=== PATIENT | male | born 1990 | race African-American/Black ===

== ENCOUNTER 2017-10-04 11:03 | Inpatient (IN) | payer OTHER ==
[2017-10-04 11:48] VITALS: BMI 22.2
--- NOTE | 2017-10-04 20:06 | HP ---
Admission [facility] Chief Complaint: SEEKING REHAB SERVICES Allergies/Adverse Reactions: Allergies Allergy/AdvReac Type Severity Reaction Status Date / Time egg Allergy Intermediate Difficulty Verified 10/04/17 12:02 Breathing Egg Derived Allergy Intermediate Difficulty Verified 10/04/17 12:02 Breathing No Known Drug Allergies Allergy Unknown Verified 10/04/17 12:03 History of Present Illness: 27 Y.O. MAN WITH AN EXTENSIVE HISTORY OF MARIJUANA DEPENDENCE IS HERE SEEKING HIS FIRST REHAB ADMISSION. HE REPORTS HE IS MANDATED TO COMPLETE REHAB BY [facility]. DOES NOT HAVE A SIGNIFICANT PERIOD CLEAN. Exam Limitations: No Limitations - Ebola screening Have you traveled outside of the country in the last 21 days: No Have you been sick,other than usual withdrawal symptoms: No - Review of Systems Constitutional: Night Sweats EENT: reports: Blurred Vision Respiratory: reports: No Symptoms reported Cardiac: reports: No Symptoms Reported GI: reports: No Symptoms Reported : reports: No Symptoms Reported Musculoskeletal: reports: Back Pain Integumentary: reports: No Symptoms Reported Neuro: reports: No Symptoms reported Endocrine: reports: No Symptoms Reported Hematology: reports: Anemia Psychiatric: reports: Judgement Intact, Mood/Affect Appropiate, Orientated x3, Depressed, other Other Systems: Reviewed and Negative (BIPOLAR) Patient History - Patient Medical History Hx Anemia: Yes (H/X ADELFO ) Hx Asthma: No Hx Chronic Obstructive Pulmonary Disease (COPD): No Hx Cancer: No Hx Cardiac Disorders: No Hx Congestive Heart Failure: No Hx Hypertension: No Hx Hypercholesterolemia: No Hx Pacemaker: No HX Cerebrovascular Accident: No Hx Seizures: No Hx Dementia: No Hx Diabetes: No Hx Gastrointestinal Disorders: No Hx Liver Disease: No Hx Genitourinary Disorders: No Hx Sexually Transmitted Disorders: No Hx Renal Disease (ESRD): No Hx Thyroid Disease: No Hx Human Immunodeficiency Virus (HIV): No Hx Hepatitis C: No Hx Depression: Yes Hx Suicide Attempt: No Hx Bipolar Disorder: Yes Hx Schizophrenia: No - Patient Surgical History Past Surgical History: No - PPD History Previous Implant?: Yes Documented Results: Negative w/o proof PPD to be Administered?: Yes - Reproductive History Patient is a Female of Child Bearing Age (11 -55 yrs old): No - Smoking Cessation Smoking history: Current every day smoker Have you smoked in the past 12 months: Yes Aproximately how many cigarettes per day: 10 Initiated information on smoking cessation: Yes 'Breaking Loose' booklet given: 10/04/17 - Substance & Tx. History Hx Alcohol Use: No Hx Substance Use: Yes Substance Use Type: Marijuana Hx Substance Use Treatment: No - Substances Abused Marijuana/Hashish Route: Smoking Frequency: 3-6 times per week Amount used: 1.5 OZ Age of first use: 11 Date of Last Use: 09/26/17 Family Disease History - Family Disease History Family Disease History: Diabetes: Grandparent, Respiratory: Brother, Sister Admission Physical Exam [facility] - Vital Signs Vital Signs: Vital Signs - 24 hr 10/04/17 11:46 Temperature 97.7 F Pulse Rate 83 Respiratory 18 Rate Blood Pressure 100/60 - Physical General Appearance: Yes: No Apparent Distress, Nourished, Appropriately Dressed HEENTM: Yes: Hearing grossly Normal Respiratory: Yes: Chest Non-Tender, Lungs Clear, Normal Breath Sounds, No Respiratory Distress, No Accessory Muscle Use Neck: Yes: No masses,lesions,Nodules, Trachea in good position Breast: Yes: Breast Exam Deferred Cardiology: Yes: Regular Rhythm, Regular Rate Abdominal: Yes: Normal Bowel Sounds, Non Tender Genitourinary: Yes: Other (NO COMPLAINTS REPORTED) Back: Yes: Normal Inspection Musculoskeletal: Yes: Back pain Extremities: Yes: Normal Inspection, Normal Range of Motion Neurological: Yes: Alert, Motor Strength 5/5, Normal Mood/Affect, Normal Response Integumentary: Yes: Normal Color, Dry, Warm Lymphatic: Yes: Within Normal Limits - Diagnostic (1) Marijuana dependence Current Visit: Yes Status: Chronic (2) Nicotine dependence Current Visit: Yes Status: Chronic (3) History of iron deficiency anemia Current Visit: Yes Status: Suspected Cleared for Admission [facility] - Detox or Rehab [facility] Level of Care: Observation Bed Claeared for Rehab Admission: Yes [facility] Breath Alcohol Content Breath Alcohol Content: 0 Urine Drug Screen - Results Drug Screen Negative: No Urine Drug Screen Results: THC-Marijuana Inpatient Rehab Admission - Initial Determination Are CD services needed?: Yes Free of communicable disease: Yes Not in need of hospitalization: Yes - Rehab Admission Criteria Previous failed treatment: Yes Poor recovery environment: No Comorbidities: No Lacks judgement: No Patient is meeting Inpatient Rehab admission criteria:: Yes
[2017-10-04] MEDS ORDERED: MAG HYDROX/AL HYDROX/SIMETH 30 ML UNIT-DOSE CUP PO PRN (20:14)
[2017-10-04] MEDS ORDERED: hydrOXYzine PAMOATE 50 MG CAPSULE (FP) PO PRN (20:14)
[2017-10-04] MEDS ORDERED: MAGNESIUM CITRATE 300 ML BOTTLE PO PRN (20:14)
[2017-10-04] MEDS ORDERED: P-EPHED 60MG/TRIPROLIDI 2.5MG TABLET PO PRN (20:14)
[2017-10-04] MEDS ORDERED: IBUPROFEN 400 MG TABLET (FP) PO PRN (20:14)
[2017-10-04] MEDS ORDERED: MENTHOL/PHENOL 1 EACH UD MM PRN (20:14)
[2017-10-04] MEDS ORDERED: guaiFENesin/D-METHORPHAN HB 10 ML UNIT-DOSE CUPS PO PRN (20:14)
[2017-10-04] MEDS ORDERED: ACETAMINOPHEN 325 MG TABLET (FP) PO PRN (20:14)
[2017-10-04] MEDS ORDERED: LOPERAMIDE HCL 2 MG CAPSULE PO PRN (20:14)
[2017-10-04] MEDS ORDERED: MAGNESIUM HYDROX 2400MG/30ML ORAL SUSPENSION 30 ML CUP PO PRN (20:14)
[2017-10-04] MEDS ORDERED: COLLOIDAL OATMEAL 1 BAR EACH TP PRN (20:15)
[2017-10-04] MEDS ORDERED: AMMONIUM LACTATE 12% LOTION 225 GM BOTTLE TP PRN (20:17)
[2017-10-04] MEDS ORDERED: TUBERCULIN PPD 5 TU/0.1ML VIAL ID ONE (21:46)
[2017-10-04] MEDS: THIAMINE HCL 100 MG TABLET (FP) PO SCH (21:47)
[2017-10-04 22:54] LABS: URINE APPEARANCE CLEAR; URINE BILIRUBIN NEGATIVE (NEGATIVE); URINE BLOOD NEGATIVE (NEGATIVE); URINE COLOR AMBER; URINE GLUCOSE (UA) NEGATIVE (NEGATIVE); URINE KETONE NEGATIVE (NEGATIVE); URINE LEUK ESTERASE NEGATIVE (NEGATIVE); URINE NITRITE NEGATIVE (NEGATIVE)
[2017-10-04 23:25] LABS: URINE PROTEIN 1+ (NEGATIVE)
[2017-10-04 23:28] LABS: EPI CELLS RARE /HPF (FEW); URINE HYALINE CAST 3 /lpf; URINE MUCUS MANY
--- NOTE | 2017-10-04 23:44 | PN ---
[facility] Progress Note Note: Psychiatric nurse practitioner note: Pre Sales Technical Consultant contacted by RN requesting patient's Seroquel medications. As per pharmacy claims patient received a prescription of seroquel 100mg BID on . Seroquel 100mg BID ordered. Verbal consent given. Will continue to monitor patient.
[2017-10-04] MEDS: QUEtiapine FUMARATE 100 MG TABLET (FP) PO SCH (23:54)
[2017-10-05 10:00] LABS: HEMATOCRIT 41.7 % (35.4-49); HEMOGLOBIN 13.6 GM/dL (11.7-16.9); MCH 28.6 pg (25.7-33.7); MCHC 32.6 g/dl (32.0-35.9); MEAN CELL VOLUME 87.8 fl (80-96); MEAN PLT VOLUME 8.6 fl (7.5-11.1); PLATELET COUNT 325 K/MM3 (134-434); RBC 4.75 M/mm3 (4.00-5.60); RDW 14.7 % (11.9-15.9)
[2017-10-05 10:03] LABS: ALBUMIN 3.1 g/dl (3.4-5.0); ALK PHOS 48 U/L (45-117); ANION GAP 5 (8-16); BILIRUBIN,TOTAL 0.6 mg/dL (0.2-1.0); BLOOD UREA NITROGEN 9 mg/dL (7-18); CALCIUM 7.9 mg/dL (8.5-10.1); CHLORIDE 107 mmol/L (98-107); CO2 31 mmol/L (21-32); CREATININE 1.2 mg/dL (0.7-1.3); GLUCOSE,RANDOM 143 mg/dL (74-106); POTASSIUM 3.7 mmol/L (3.5-5.1); SGOT/AST 23 U/L (15-37); SGPT/ALT 23 U/L (12-78); SODIUM 143 mmol/L (136-145); TOT PROT 5.8 g/dl (6.4-8.2)
[2017-10-05] MEDS: QUEtiapine FUMARATE 100 MG TABLET (FP) PO SCH ×2 (10:55→21:04)
[2017-10-05] MEDS: NICOTINE 14 MG/24 HOURS TOPICAL PATCH TD SCH (10:55)
[2017-10-05] MEDS: PRENATAL VITAMINS W/ FOLIC ACID TABLET (FP) PO SCH (10:55)
[2017-10-05] MEDS: THIAMINE HCL 100 MG TABLET (FP) PO SCH (21:04)
[2017-10-06] MEDS: PRENATAL VITAMINS W/ FOLIC ACID TABLET (FP) PO SCH (09:56)
[2017-10-06] MEDS: QUEtiapine FUMARATE 100 MG TABLET (FP) PO SCH ×2 (09:57→21:08)
[2017-10-06] MEDS: NICOTINE POLACRILEX 2 MG GUM BUC PRN ×3 (09:57→17:43)
[2017-10-06] MEDS: NICOTINE 14 MG/24 HOURS TOPICAL PATCH TD SCH (09:58)
[2017-10-06] MEDS: THIAMINE HCL 100 MG TABLET (FP) PO SCH (21:08)
[2017-10-07] MEDS: PRENATAL VITAMINS W/ FOLIC ACID TABLET (FP) PO SCH (10:37)
[2017-10-07] MEDS: QUEtiapine FUMARATE 100 MG TABLET (FP) PO SCH ×2 (10:37→21:07)
[2017-10-07] MEDS: NICOTINE POLACRILEX 2 MG GUM BUC PRN ×3 (10:38→21:08)
[2017-10-07] MEDS: NICOTINE 14 MG/24 HOURS TOPICAL PATCH TD SCH (10:38)
--- NOTE | 2017-10-07 14:49 | HP ---
Psychiatrist Admission - Data Date of interview: 10/07/17 Admission source: [facility] Identifying data: [facility] 27 year old AA male unemployed and residing with his brother in [place]. Medical History: anemia, smokes 2 cigarettes a day Psychiatric History: Patient reports first psychiatric contact at age of 10, diagnosed as ADHD and later his diagnosis chaged to Bipolar disorder reports several psychiatric hospitalizations mostly to [facility] with most recent "long time ago", under the care of [facility] outpatient clinic, he reports has been on different psychotropics since age 10, (Risperdal,Ritalin, Depakote Vistaril, Prozac, Zyprexa, Remeron) currenly on Seroquel 200 mg po hs. Physical/Sexual Abuse/Trauma History: Denies history of abuse. Additional Comment: longest period of abstinence 6 months Vital Signs: Vital Signs - 24 hr 10/07/17 10/07/17 10/07/17 00:30 03:30 06:50 Temperature 98.3 F Pulse Rate 65 Respiratory 16 16 16 Rate Blood Pressure 93/51 Allergies/Adverse Reactions: Allergies Allergy/AdvReac Type Severity Reaction Status Date / Time egg Allergy Intermediate Difficulty Verified 10/04/17 12:02 Breathing Egg Derived Allergy Intermediate Difficulty Verified 10/04/17 12:02 Breathing No Known Drug Allergies Allergy Unknown Verified 10/04/17 12:03 Date of last physical exam: 10/04/17 Concur with the findings of this exam: Yes - Substance Abuse/Tx History Hx Alcohol Use: No Hx Substance Use: Yes Substance Use Type: Marijuana (age at first use 10, 2-3 timew a week) Hx Substance Use Treatment: Yes Mental Status Exam - Mental Status Exam Alert and Oriented to: Time, Place, Person Cognitive Function: Good Patient Appearance: Well Groomed Mood: Sad Affect: Appropriate Patient Behavior: Appropriate, Cooperative Speech Pattern: Clear, Appropriate Voice Loudness: Normal Thought Process: Intact, Goal Oriented Thought Disorder: Not Present Hallucinations: Denies Suicidal Ideation: Denies Homicidal Ideation: Denies Insight/Judgement: Fair Sleep: Poorly, Difficulty falling asleep Appetite: Poor, Weight loss Muscle strength/Tone: Normal Gait/Station: Normal Psychiatric Findings - Problem List ([place] 1, 2,3) (1) Bipolar I disorder, most recent episode depressed Current Visit: Yes Status: Acute (2) Marijuana dependence Current Visit: Yes Status: Chronic (3) Nicotine dependence Current Visit: Yes Status: Chronic - Initial Treatment Plan Initial Treatment Plan: Starting 10/08 will change Seroquel 100 mg po bid to Seroquel 20 mg po hs, add Remeron 15 mg po hs, monitor progress as needed.
[2017-10-07] MEDS: THIAMINE HCL 100 MG TABLET (FP) PO SCH (21:07)
[2017-10-07] MEDS ORDERED: MIRTAZAPINE 15 MG TABLET (FP) PO SCH (22:00)
[2017-10-08 06:51] VITALS: BP 111/72; PULSE 55; TEMP 97.7
--- NOTE | 2017-10-08 10:31 | PN ---
[facility] Progress Note Note: patient's insurance denied authorization for treatment, patient was discharged today, met with the patient , he was provided with a scripts for Seroquel 200 mg po hs and Remeron 15 mg po hs for 30 days supply, patient is stable for discharge, will f/u with his psychiatrist at [facility].
[2017-10-08] MEDS: PRENATAL VITAMINS W/ FOLIC ACID TABLET (FP) PO SCH (10:40)
[2017-10-08] MEDS: NICOTINE 14 MG/24 HOURS TOPICAL PATCH TD SCH (10:40)
[2017-10-08] MEDS: NICOTINE POLACRILEX 2 MG GUM BUC PRN (10:41)
--- NOTE | 2017-10-08 13:35 | EKG ---
Test Reason : Blood Pressure : / mmHG Vent. Rate : 054 BPM Atrial Rate : 054 BPM P-R Int : 162 ms QRS Dur : 086 ms QT Int : 402 ms P-R-T Axes : 023 056 045 degrees QTc Int : 381 ms SINUS BRADYCARDIA OTHERWISE NORMAL ECG NO PREVIOUS ECGS AVAILABLE Confirmed by MD Jordy, Ross ([id number]) on 10/08/2017 1:35:35 PM Referred By: Confirmed By:Ross Spence MD
[2017-10-08] MEDS ORDERED: QUEtiapine FUMARATE 200 MG TABLET PO SCH (22:00)
== END 2017-10-08 11:12 | disposition home or self-care (01) | DRG 895 ==
LOC: YASAS 11:03 → Y5N 18:19
PROVIDERS: ADMIT Psychiatry & Neurology Psychiatry; ATTEND Psychiatry & Neurology Psychiatry
PROC: HZ42ZZZ Group Counseling for Substance Abuse Treatment, Cognitive-Behavioral (ICD-10-PCS; principal; 2017-10-04)
DX: F12.20 Cannabis dependence, uncomplicated (principal); F31.30 Bipolar disorder, current episode depressed, mild or moderate severity, unspecified; F17.210 Nicotine dependence, cigarettes, uncomplicated; Z86.2 Personal history of diseases of the blood and blood-forming organs and certain disorders involving the immune mechanism
CPT/HCPCS: 36415; 80053; 81003; 81015; 85027; 86593; 87389; 93005; 93010